=== PATIENT | male | born 1975 | race African-American/Black ===

== ENCOUNTER 2017-12-20 11:48 | Emergency (ER) | payer MEDICAID ==
[~2017-12-20] VITALS: Ht 188 cm; Wt 99.8 kg
[2017-12-20 12:00] VITALS: BP 138/94
== END 2017-12-20 13:14 | disposition home or self-care (01) ==
LOC: ER 11:48
DX: S63.286A Dislocation of proximal interphalangeal joint of right little finger, initial encounter (principal); W21.05XA Struck by basketball, initial encounter; Y93.67 Activity, basketball; Y99.8 Other external cause status; Y92.89 Other specified places as the place of occurrence of the external cause
CPT/HCPCS: 26770; 73130; 73140

== ENCOUNTER 2025-03-05 10:51 | Emergency (ER) | payer OTHER, MEDICAID ==
[~2025-03-05] VITALS: Ht 188 cm; Wt 90.2 kg
[2025-03-05 11:50] VITALS: TEMP 97.4
--- NOTE | 2025-03-05 12:17 | ED.PDOC ---
History of Present Illness HPI Comments 49 year old male presents to the ED for the c/c of a Burning Sensation in his Chest throughout the esophagus. Pt states that his burning sensation has been going on for the past year, but has worsened within the past 3x days and is associated with intermittent nausea and hiccups. Pt is Noted to have visited [facility] on 01/27/25 for N/V, and chest burning. Pt was Dx with Vomiting/, Hypokalemia, and Kidney Stones. Pt did have a Abdomen Pelvic CT done as well and was Rx a course of cefpodoxime and omeprazole. Completed medications with minimal improvement Denies history of RI or CVA Denies lightheadedness or dizziness Denies shortness of breath Denies palpitations, leg swelling Denies family history of heart issues or RI Denies history of panic attacks Denies recent trauma to the chest, history of significant trauma to the chest nor surgeries of the chest Denies fever chills nausea vomiting diarrhea Chief Complaint: Earache Time Seen by MD: 12:08 Primary Care Provider: NONE Reviewed Notes: Nurses Notes, Medications, Allergies Allergies: Coded Allergies: NO KNOWN ALLERGIES (Unverified , 12/20/17) Information Source: Patient Mode of Arrival: Ambulatory Severity: Moderate Timing: Months Duration: Since onset Prehospital treatment: None Past Medical History PAST MEDICAL HISTORY: Denies Surgical History: Denies all surgeries Family History Family History: Unknown Social History Smoker: Non-Smoker Lives In: Home Constitutional: denies: chills, diaphoresis, fatigue, fever, malaise, sweats, weakness, others EENTM: denies: blurred vision, double vision, ear bleeding, ear discharge, ear drainage, ear pain, ear ringing, eye pain, eye redness, hearing loss, mouth pain, mouth swelling, nasal discharge, nose bleeding, nose congestion, nose pain, photophobia, tearing, throat pain, throat swelling, voice changes, others Respiratory: denies: cough, hemoptysis, orthopnea, SOB at rest, shortness of breath, SOB with excertion, stridor, wheezing, others Cardiovascular: reports: chest pain; denies: dizzy spells, diaphoresis, Dyspnea on exertion, edema, irregular heart beat, left arm pain, lightheadedness, palpitations, PND, syncope, others Gastrointestinal: denies: abdomen distended, abdominal pain, blood streaked bowels, constipated, diarrhea, dysphagia, difficulty swallowing, hematemesis, melena, nausea, poor appetite, poor fluid intake, rectal bleeding, rectal pain, vomiting, others Genitourinary: denies: burning, dysuria, flank pain, frequency, hematuria, incontinence, penile discharge, penile sore, pain, testicle pain, testicle swelling, urgency, others Neurological: denies: dizziness, fainting, headache, left sided numbness, left sided weakness, numbness, paresthesia, pre-existing deficit, right sided numbness, right sided weakness, seizure, speech problems, tingling, tremors, weakness, others Musculoskeletal: denies: back pain, gout, joint pain, joint swelling, muscle pain, muscle stiffness, neck pain, others Integumetry: denies: bruises, change in color, change in hair/nails, dryness, laceration, lesions, lumps, rash, wounds, others Allergic/Immunocompromised: denies: Difficulty Healing, Frequent Infections, Hives, Itching, others Hematologic/Lymphatic: denies: anemia, blood clots, easy bleeding, easy bruising, swollen glands, others Endocrine: denies: excessive hunger, excessive sweating, excessive thirst, excessive urination, flushing, intolerance to cold, intolerance to heat, unexplained weight gain, unexplained weight loss, others Psychiatric: denies: anxiety, bipolar disorder, depression, hopeless, panic disorder, schizophrenia, sleepless, suicidal, others All Other Systems: Reviewed and Negative Physical Exam General Appearance: No Apparent Distress, Normal HEENT: Normal ENT Inspection, Pharynx Normal, TMs Normal, Other (Hiccups) Neck: Full Range of Motion, Non-Tender, Normal Respiratory: Chest Non-Tender, Lungs Clear, No Respiratory Distress, Normal Breath Sounds Cardiovascular: No Edema, No JVD, Regular Rate/Rhythm Breast Exam: Deferred Gastrointestinal: Non Tender, No Pulsatile Mass, Normal Bowel Sounds, Soft Genitalia: Deferred Pelvic: Deferred Rectal: Deferred Extremities: No calf tenderness, Normal capillary refill, Normal range of motion, Non-tender Musculoskeletal : Apperance: Normal Neurologic: Alert, No Motor Deficits, Normal Mood Cerebellar Function: Normal Reflexes: Normal Skin: Dry, Normal Color, Warm Lymphatic: No Adenopathy Was a procedure done? Was a procedure done?: No Differential Dx Considerations may include: RI, GERD, Gastritis, electrolyte abnormality X-Ray, Labs, Meds, VS Vital Signs Date Time Temp Pulse Resp B/P (MAP) Pulse Ox O2 Delivery O2 Flow Rate FiO2 03/05/25 17:56 70 18 148/97 (114) 98 03/05/25 11:50 97.4 107 18 144/81 (102) 96 97.4 03/05/25 11:50 107 18 96 Room Air 03/05/25 11:32 97.4 107 18 143/106 (118) 96 97.4 Lab Test 03/05/25 12:41 03/05/25 12:21 Range/Units White Blood Count 8.1 4.4-10.8 10^3/uL Red Blood Count 4.90 4.5-5.90 10^6/uL Hemoglobin 13.1 L 13.5-17.5 g/dL Hematocrit 39.8 L 41.0-53.0 % Mean Corpuscular Volume 81.2 80.0-100.0 fL Mean Corpuscular Hemoglobin 26.8 L 28.0-32.0 pg Mean Corpuscular Hemoglobin Concent 33.0 32.0-36.0 g/dL Red Cell Distribution Width 16.1 H 11.8-14.3 % Platelet Count 278 140-450 10^3/uL Mean Platelet Volume 7.8 6.9-10.8 fL Neutrophils (%) (Auto) 74.7 37.0-80.0 % Lymphocytes (%) (Auto) 16.4 10.0-50.0 % Monocytes (%) (Auto) 7.8 0.0-12.0 % Eosinophils (%) (Auto) 0.5 0.0-7.0 % Basophils (%) (Auto) 0.6 0.0-2.0 % Neutrophils # (Auto) 6.0 1.6-8.6 10 ^3/uL Lymphocytes # (Auto) 1.3 0.4-5.4 10 ^3/uL Monocytes # (Auto) 0.6 0-1.3 10 ^3/uL Eosinophils # (Auto) 0 0-0.8 10 ^3/uL Basophils # (Auto) 0 0-0.2 10 ^3/uL Nucleated Red Blood Cells 0.1 % Sodium Level 140 136-145 mmol/L Potassium Level 2.9 L 3.5-5.1 mmol/L Chloride Level 104 98-107 mmol/L Carbon Dioxide Level 31 20-31 mmol/L Anion Gap 5 5-15 Blood Urea Nitrogen 10 9-23 mg/dL Creatinine 1.21 0.700-1.30 mg/dL Glomerular Filtration Rate Calc 73 >90 mL/min BUN/Creatinine Ratio 8.3 L 10.0-20.0 Serum Glucose 103 74-106 mg/dL Calcium Level 12.3 H 8.7-10.4 mg/dL Magnesium Level 2.1 1.6-2.6 mg/dL Troponin I High Sensitivity 5 </=54 ng/L Lipase 34 12-53 U/L Urine Color Light yellow Yellow Urine Clarity Ex.turbid Clear Urine pH 8.5 5.0-9.0 Urine Specific [place] 1.012 1.001-1.035 Urine Protein Negative Negative Urine Ketones Negative Negative Urine Blood Negative Negative /uL Urine Nitrite Negative Negative Urine Bilirubin Negative Negative Urine Urobilinogen Normal Negative mg/dL Urine Leukocyte Esterase 1+ Negative /uL Urine RBC 8 0 - 3 /hpf Urine Microscopic WBC 16 H 0-3 /HPF Urine Squamous Epithelial Cells Few <5 /hpf Urine Amorphous Crystals Few None Seen /hpf Urine Bacteria Few H None Seen /hpf Urine Glucose Normal Normal mg/dL X-Ray, Labs, Meds, VS Comment 49 year old male presents to the ED for the c/c of a Burning Sensation in his Chest, and Ear. Patient arrives alert and oriented, ABC's intact, afebrile, vital signs stable, saturating well in room air CBC was ordered to exclude anemia, blood loss, or infection. BMP was ordered to exclude electrolyte abnormalities, renal failure, dehydration, hyperglycemia Troponin and BNP were ordered to rule out myocardial infarction, or congestive heart failure. Urinalysis was ordered to rule out UTI or hematuria. Diagnostic imaging ordered by me and results interpreted by radiology : Labs in the ED showed: Potassium of 2.9 consistent w/ Hypokalemia EKG: prolonged ID internal > 210. No STEMI Magnesium ordered and pending result at this time CXR ordered Patient was given: GI Cocktail_PO. Tolerated medications with no adverse reaction. Patient also given PO K+ w/ no adverse reactions. The patient presents with s/s consistent with Hypokalemia. Potassium < 3.0. The patient's workup reveals that the patient needs further evaluation and/or treatment for the above medical conditions. Patient verbalized understanding of the above and is awaiting further evaluation by the admitting service. Time of 1ST Reevaluation: 12:39 Reevaluation 1ST: Unchanged Time of 2ND Reevaluation: 14:05 Reevaluation 2ND: Improved Patient Education/Counseling: Diagnosis, Treatment Family Education/Counseling: No Family Present Departure 1 Departure Time of Disposition: 14:05 Impression: Primary Impression: Hypokalemia Additional Impressions: Nausea Hiccups Disposition: ADMITTED INPATIENT Condition: Serious Critical Care Note Critical Care Time?: No Stability Stability form required: No Heart Score Heart Score: Heart Score Response (Comments) Value History N/A 0 EKG N/A 0 Age N/A 0 Risk Factors N/A 0 Troponin N/A 0 Total 0 I personally scribed for JOON AGUILAR NP ([email or web address]) on 03/05/25 at 12:17. Electronically submitted by Meir Gonzalez ([email or web address]). I personally scribed for JOON AGUILAR NP ([email or web address]) on 03/05/25 at 13:41. Electronically submitted by Meir Gonzalez ([email or web address]). JOON AGUILAR NP Mar 05, 2025 12:17
[2025-03-05] MEDS: MAALOX PLUS or MAALOX 30 ML PO ONE (12:27)
[2025-03-05] MEDS: LIDOCAINE VISCOUS 2% 15ML UD PO ONE (12:27)
[2025-03-05] MEDS: DONNATAL 5ml ORAL Elix (BELLADONNA ALK-PHENOBARB) PO ONE (12:27)
[2025-03-05 12:35] LABS: Urine Amorphous Crystal FEW /hpf (None Seen); Urine Bacteria FEW /hpf (None Seen); Urine Blood Negative /uL (Negative); Urine Clarity Ex.Turbid (Clear); Urine Protein, UAD Negative (Negative); Urine Specific Gravity 1.012 (1.001-1.035); Urine Squamous Epithelial Cell FEW /hpf (<5); Urine Urobilinogen Normal (Negative); Urine WBC 16 /HPF (0-3); Urine pH 8.5 (5.0-9.0)
[2025-03-05 12:38] LABS: Urine Color Light Yellow (Yellow)
[2025-03-05 12:55] LABS: Basophils # (auto) 0 10 ^3/uL (0-0.2); Basophils % (auto) 0.6 % (0.0-2.0); Eosinophils # (auto) 0 10 ^3/uL (0-0.8); Eosinophils % (auto) 0.5 % (0.0-7.0); Hematocrit 39.8 % (41.0-53.0); Hemoglobin 13.1 g/dL (13.5-17.5); Lymphocytes # (auto) 1.3 10 ^3/uL (0.4-5.4); Lymphocytes % (auto) 16.4 % (10.0-50.0); Mean Corpuscular Hemoglobin 26.8 pg (28.0-32.0); Mean Corpuscular Volume 81.2 fL (80.0-100.0); Monocytes # (auto) 0.6 10 ^3/uL (0-1.3); Monocytes % (auto) 7.8 % (0.0-12.0); Neutrophils % (auto) 74.7 % (37.0-80.0); Nucleated Red Blood Cells % 0.1 %; Platelet Count (auto) 278 10^3/uL (140-450); Red Cell Distribution Width 16.1 % (11.8-14.3); White Blood Cell 8.1 10^3/uL (4.4-10.8)
[2025-03-05 13:05] LABS: Chloride 104 mmol/L (98-107); Sodium 140 mmol/L (136-145)
[2025-03-05 13:06] LABS: Anion Gap 5 (5-15); Carbon Dioxide 31 mmol/L (20-31)
[2025-03-05 13:11] LABS: BUN/Creatinine Ratio 8.3 (10.0-20.0); Blood Urea Nitrogen 10 mg/dL (9-23); Glucose 103 mg/dL (74-106)
[2025-03-05 13:13] LABS: Calcium 12.3 mg/dL (8.7-10.4); Potassium 2.9 mmol/L (3.5-5.1)
[2025-03-05 13:24] LABS: Lipase 34 U/L (12-53)
[2025-03-05] MEDS: POTASSIUM EFFERVESENT TAB 25 MEQ PO ONE (14:14)
--- NOTE | 2025-03-05 14:30 | DVH ---
CHEST RADIOGRAPH Indication: r/o pna Technique: Single frontal view of the chest was obtained Comparison: None FINDINGS: The cardiac silhouette is unremarkable. The lungs demonstrate right basilar airspace opacification. T he pulmonary vasculature is unremarkable. There is no pleural effusion.. There is no pneumothorax. IMPRESSION: 1. Right basilar airspace opacification.
[2025-03-05 17:56] VITALS: BP 148/97; PULSE 70; RESP 18; O2SAT 98
--- NOTE | 2025-03-06 07:55 | ECG ---
[facility] Test Date: 2025-03-05 Test Time: 13:43:36 Pat Name: ROSA M BENITEZ Department: ER Room: Gender: M Illusionist: : 1975 Requested By: JOON AGUILAR Order Number: [id number] Reading MD: Dionicio Sharma Measurements Intervals [place] Rate: 79 P: 76 RI: 226 QRS: 55 QRSD: 90 T: 65 QT: 368 QTc: 422 Interpretive Statements Incomplete analysis due to missing data in precordial lead(s) Sinus rhythm Prolonged RI interval Probable left atrial enlargement Missing lead(s): V4 Electronically Signed On 03-06-2025 12:37:44 PDT by Doinicio Sharma Please click the below link to view image of tracing.
== END 2025-03-05 18:35 | disposition left against medical advice (07) ==
LOC: ER 10:51
DX: E87.6 Hypokalemia (principal); R11.2 Nausea with vomiting, unspecified; R06.6 Hiccough
CPT/HCPCS: 36415; 71045; 80048; 81001; 83690; 83735; 84484; 85025; 93005